=== PATIENT | male | born 1965 | race African-American/Black ===

== ENCOUNTER 2022-08-22 12:33 | Inpatient (IN) | payer OTHER ==
[2022-08-22 13:39] VITALS: BMI 26.6
[2022-08-22] MEDS ORDERED: ONDANSETRON *ODT* 4 MG TABLET SL PRN (16:13)
[2022-08-22] MEDS ORDERED: DICYCLOMINE HCL 10 MG CAPSULE PO PRN (16:13)
[2022-08-22] MEDS ORDERED: MAGNESIUM HYDROX 2400MG/30ML ORAL SUSPENSION 30 ML CUP PO PRN (16:13)
[2022-08-22] MEDS ORDERED: LOPERAMIDE HCL 2 MG CAPSULE PO PRN (16:13)
[2022-08-22] MEDS ORDERED: NALOXONE HCL (KLOXXADO) 8 MG SPRAY NS PRN (16:13)
[2022-08-22] MEDS ORDERED: NICOTINE 10 MG CARTRIDGE (INHALER) IH PRN (16:13)
[2022-08-22] MEDS ORDERED: BISMUTH SUBSALICYLATE 524 MG/30 ML PO PRN (16:13)
[2022-08-22] MEDS ORDERED: NICOTINE POLACRILEX 2 MG GUM BUC PRN (16:13)
[2022-08-22] MEDS ORDERED: IBUPROFEN 400 MG TABLET (FP) PO PRN (16:13)
[2022-08-22] MEDS ORDERED: IBUPROFEN 600 MG TABLET (FP) PO PRN (16:13)
[2022-08-22] MEDS ORDERED: MAG HYDROX/AL HYDROX/SIMETH 30 ML UNIT-DOSE CUP PO PRN (16:13)
[2022-08-22] MEDS ORDERED: ACETAMINOPHEN 325 MG TABLET (FP) PO PRN ×2 (16:13)
[2022-08-22] MEDS ORDERED: BENZOCAINE/MENTHOL (CHLORASEPTIC ) LOZENGE MM PRN (16:13)
[2022-08-22] MEDS ORDERED: MAGNESIUM CITRATE 300 ML BOTTLE PO PRN (16:13)
[2022-08-22] MEDS: PRENATAL VITAMINS W/ FOLIC ACID TABLET (FP) PO SCH (17:37)
[2022-08-22] MEDS: chlordiazePOXIDE HCL 25 MG CAPSULE PO SCH ×2 (17:40→22:53)
[2022-08-22] MEDS: METHOCARBAMOL 500 MG TABLET PO PRN (17:40)
[2022-08-22] MEDS: THIAMINE HCL 100 MG TABLET (FP) PO SCH (22:53)
[2022-08-22] MEDS: MELATONIN 5 MG TABLETS PO SCH (22:55)
[2022-08-23] MEDS: chlordiazePOXIDE HCL 25 MG CAPSULE PO SCH ×4 (06:20→22:51)
[2022-08-23] MEDS ORDERED: hydrOXYzine PAMOATE 25 MG CAPSULE (FP) PO PRN (09:03)
[2022-08-23 11:09] LABS: HEMATOCRIT 42.3 % (35.4-49); HEMOGLOBIN 14.2 GM/dL (11.7-16.9); MCH 30.4 pg (25.7-33.7); MCHC 33.5 g/dl (32.0-35.9); MEAN CELL VOLUME 90.6 fl (80-96); MEAN PLT VOLUME 8.4 fl (7.5-11.1); PLATELET COUNT 212 10^3/uL (134-434); RBC 4.67 M/mm3 (4.00-5.60); RDW 13.5 % (11.9-15.9); WHITE BLOOD COUNT 4.2 K/mm3 (4.0-10.0)
[2022-08-23 11:20] LABS: ALBUMIN 3.3 g/dl (3.4-5.0); CALCIUM 8.3 mg/dL (8.5-10.1)
[2022-08-23] MEDS: PRENATAL VITAMINS W/ FOLIC ACID TABLET (FP) PO SCH (11:20)
[2022-08-23 11:21] LABS: BLOOD UREA NITROGEN 12.1 mg/dL (7-18)
[2022-08-23 11:25] LABS: BILIRUBIN,TOTAL 0.4 mg/dL (0.2-1)
[2022-08-23] MEDS: MELATONIN 5 MG TABLETS PO SCH (22:50)
[2022-08-23] MEDS: THIAMINE HCL 100 MG TABLET (FP) PO SCH (22:52)
[2022-08-24] MEDS: chlordiazePOXIDE HCL 25 MG CAPSULE PO SCH ×4 (06:20→22:46)
[2022-08-24] MEDS: PRENATAL VITAMINS W/ FOLIC ACID TABLET (FP) PO SCH (10:31)
[2022-08-24] MEDS: THIAMINE HCL 100 MG TABLET (FP) PO SCH (22:26)
[2022-08-24] MEDS: MELATONIN 5 MG TABLETS PO SCH (22:26)
[2022-08-24] MEDS: CALCIUM CARBONATE 650 MG TABLET PO SCH (22:26)
[2022-08-25] MEDS: chlordiazePOXIDE HCL 10 MG CAPSULE PO SCH ×4 (06:15→22:22)
[2022-08-25] MEDS: PRENATAL VITAMINS W/ FOLIC ACID TABLET (FP) PO SCH (10:19)
[2022-08-25] MEDS: CALCIUM CARBONATE 650 MG TABLET PO SCH ×2 (10:19→22:21)
[2022-08-25] MEDS: THIAMINE HCL 100 MG TABLET (FP) PO SCH (22:21)
[2022-08-25] MEDS: MELATONIN 5 MG TABLETS PO SCH (22:21)
[2022-08-26] MEDS: chlordiazePOXIDE HCL 10 MG CAPSULE PO SCH ×2 (06:48→17:38)
[2022-08-26] MEDS: PRENATAL VITAMINS W/ FOLIC ACID TABLET (FP) PO SCH (10:58)
[2022-08-26] MEDS: CALCIUM CARBONATE 650 MG TABLET PO SCH ×2 (10:58→22:36)
[2022-08-26 21:04] VITALS: RESP 18
[2022-08-26] MEDS: MELATONIN 5 MG TABLETS PO SCH (22:36)
[2022-08-26] MEDS: THIAMINE HCL 100 MG TABLET (FP) PO SCH (22:36)
[2022-08-27] MEDS: METHOCARBAMOL 500 MG TABLET PO PRN (00:37)
[2022-08-27] MEDS ORDERED: chlordiazePOXIDE HCL 10 MG CAPSULE PO ONE (05:00)
[2022-08-27 09:08] VITALS: BP 104/71; PULSE 86; TEMP 98.2
== END 2022-08-27 11:34 | disposition home or self-care (01) | DRG 774 ==
LOC: YASAS 12:33 → Y3N 16:35 → UNDODISIN 08-27 10:10
PROVIDERS: ADMIT Allergy & Immunology; ATTEND Surgery
PROC: HZ2ZZZZ Detoxification Services for Substance Abuse Treatment (ICD-10-PCS; principal; 2022-08-22)
DX: F10.230 Alcohol dependence with withdrawal, uncomplicated (principal); F14.20 Cocaine dependence, uncomplicated; F17.210 Nicotine dependence, cigarettes, uncomplicated; F19.280 Other psychoactive substance dependence with psychoactive substance-induced anxiety disorder; F19.24 Other psychoactive substance dependence with psychoactive substance-induced mood disorder; E46 Unspecified protein-calorie malnutrition; E83.51 Hypocalcemia; E87.8 Other disorders of electrolyte and fluid balance, not elsewhere classified; Z68.27 Body mass index [BMI] 27.0-27.9, adult; Z28.310 Unvaccinated for COVID-19; Z28.21 Immunization not carried out because of patient refusal
CPT/HCPCS: 36415; 80053; 85027; 86780; 87811; C9803-CS; U0003; U0005

== ENCOUNTER 2023-04-05 10:02 | Inpatient (IN) | payer OTHER ==
[2023-04-05 10:29] VITALS: BMI 27.7
[2023-04-05] MEDS ORDERED: BENZOCAINE/MENTHOL (CHLORASEPTIC ) LOZENGE MM PRN (11:23)
[2023-04-05] MEDS ORDERED: METHOCARBAMOL 500 MG TABLET PO PRN (11:23)
[2023-04-05] MEDS ORDERED: POLYETHYLENE GLYCOL (HEALTHYLAX) 3350 17 GM PACKET PO PRN (11:23)
[2023-04-05] MEDS ORDERED: guaiFENesin 600 MG TABLET.ER (FP) PO PRN (11:23)
[2023-04-05] MEDS ORDERED: NALOXONE HCL (KLOXXADO) 8 MG SPRAY NS PRN (11:23)
[2023-04-05] MEDS ORDERED: BISMUTH SUBSALICYLATE 524 MG/30 ML PO PRN (11:23)
[2023-04-05] MEDS ORDERED: ONDANSETRON *ODT* 4 MG TABLET SL PRN (11:23)
[2023-04-05] MEDS ORDERED: hydrOXYzine PAMOATE 25 MG CAPSULE (FP) PO PRN (11:23)
[2023-04-05] MEDS ORDERED: IBUPROFEN 400 MG TABLET (FP) PO PRN (11:23)
[2023-04-05] MEDS ORDERED: ACETAMINOPHEN 325 MG TABLET (FP) PO PRN (11:23)
[2023-04-05] MEDS ORDERED: MAG HYDROX/AL HYDROX/SIMETH 30 ML UNIT-DOSE CUP PO PRN (11:23)
[2023-04-05] MEDS ORDERED: chlordiazePOXIDE HCL 25 MG CAPSULE PO PRN (11:23)
[2023-04-05] MEDS ORDERED: MAGNESIUM HYDROX 2400MG/30ML ORAL SUSPENSION 30 ML CUP PO PRN (11:23)
[2023-04-05] MEDS ORDERED: IBUPROFEN 600 MG TABLET (FP) PO PRN (11:23)
[2023-04-05] MEDS ORDERED: DICYCLOMINE HCL 10 MG CAPSULE PO PRN (11:23)
[2023-04-05] MEDS ORDERED: LOPERAMIDE HCL 2 MG CAPSULE PO PRN (11:23)
[2023-04-05] MEDS ORDERED: BENZONATATE 200 MG CAPSULE PO PRN (11:23)
[2023-04-05] MEDS ORDERED: NALOXONE HCL 0.4 MG/ML VIAL IM PRN (11:23)
[2023-04-05] MEDS ORDERED: NICOTINE 10 MG CARTRIDGE (INHALER) IH PRN (11:23)
[2023-04-05] MEDS: chlordiazePOXIDE HCL 25 MG CAPSULE PO SCH ×2 (17:32→22:53)
[2023-04-05] MEDS: THIAMINE HCL 100 MG TABLET (FP) PO SCH (22:52)
[2023-04-05] MEDS: MELATONIN 5 MG TABLETS PO SCH (22:52)
[2023-04-06] MEDS: chlordiazePOXIDE HCL 25 MG CAPSULE PO SCH ×4 (05:47→22:30)
[2023-04-06] MEDS: PRENATAL VITAMINS W/ FOLIC ACID TABLET (FP) PO SCH (10:34)
[2023-04-06 10:50] LABS: HEMATOCRIT 41.2 % (35.4-49); HEMOGLOBIN 14.2 GM/dL (11.7-16.9); MCH 30.5 pg (25.7-33.7); MCHC 34.5 g/dl (32.0-35.9); MEAN CELL VOLUME 88.6 fl (80-96); MEAN PLT VOLUME 8.7 fl (7.5-11.1); PLATELET COUNT 181 10^3/uL (134-434); RBC 4.65 M/mm3 (4.00-5.60); RDW 13.3 % (11.9-15.9)
[2023-04-06 11:11] LABS: POTASSIUM 4.1 mmol/L (3.5-5.1)
[2023-04-06 11:14] LABS: ALBUMIN 3.5 g/dl (3.4-5.0); BLOOD UREA NITROGEN 14.9 mg/dL (7-18); CALCIUM 8.6 mg/dL (8.5-10.1)
[2023-04-06 11:17] LABS: CREATININE 1.1 mg/dL (0.55-1.3)
[2023-04-06 11:18] LABS: TOT PROT 6.3 g/dl (6.4-8.2)
[2023-04-06 11:19] LABS: BILIRUBIN,TOTAL 0.5 mg/dL (0.2-1)
[2023-04-06 11:21] LABS: CHOLESTEROL 197 mg/dL (50-200)
[2023-04-06 11:22] LABS: LDL CHOLESTEROL (ONLY SJRH) 121 mg/dL (5-100)
[2023-04-06 11:25] LABS: HDL CHOLESTEROL 57 mg/dL (40-60)
[2023-04-06] MEDS: MELATONIN 5 MG TABLETS PO SCH (22:30)
[2023-04-06] MEDS: THIAMINE HCL 100 MG TABLET (FP) PO SCH (22:30)
[2023-04-07] MEDS: chlordiazePOXIDE HCL 25 MG CAPSULE PO SCH ×4 (05:20→22:16)
[2023-04-07] MEDS: PRENATAL VITAMINS W/ FOLIC ACID TABLET (FP) PO SCH (10:18)
[2023-04-07] MEDS: MELATONIN 5 MG TABLETS PO SCH (22:15)
[2023-04-07] MEDS: THIAMINE HCL 100 MG TABLET (FP) PO SCH (22:15)
[2023-04-08] MEDS ORDERED: chlordiazePOXIDE HCL 10 MG CAPSULE PO PRN
[2023-04-08] MEDS: chlordiazePOXIDE HCL 10 MG CAPSULE PO SCH ×2 (05:48→10:07)
[2023-04-08 09:32] VITALS: BP 113/78; PULSE 72; RESP 20; TEMP 97.7
[2023-04-08] MEDS: PRENATAL VITAMINS W/ FOLIC ACID TABLET (FP) PO SCH (10:07)
[2023-04-09] MEDS ORDERED: chlordiazePOXIDE HCL 10 MG CAPSULE PO SCH (05:00)
[2023-04-10] MEDS ORDERED: chlordiazePOXIDE HCL 10 MG CAPSULE PO ONE (05:00)
== END 2023-04-08 12:48 | disposition home or self-care (01) | DRG 774 ==
LOC: YASAS 10:02 → Y3N 11:37
PROVIDERS: ADMIT Allergy & Immunology; ATTEND Surgery
PROC: HZ2ZZZZ Detoxification Services for Substance Abuse Treatment (ICD-10-PCS; principal; 2023-04-05)
DX: F10.230 Alcohol dependence with withdrawal, uncomplicated (principal); F14.20 Cocaine dependence, uncomplicated; F19.280 Other psychoactive substance dependence with psychoactive substance-induced anxiety disorder; F19.24 Other psychoactive substance dependence with psychoactive substance-induced mood disorder; E78.5 Hyperlipidemia, unspecified; Z28.311 Partially vaccinated for COVID-19; Z28.9 Immunization not carried out for unspecified reason
CPT/HCPCS: 36415; 80053; 80061; 85027; 86780; 87635; 87811

== ENCOUNTER 2024-11-01 10:35 | Inpatient (IN) | payer OTHER ==
[2024-11-01 10:55] VITALS: BMI 26.6
[2024-11-01] MEDS ORDERED: diazePAM 5 MG TABLET PO PRN (11:23)
[2024-11-01] MEDS ORDERED: BENZOCAINE/MENTHOL (CHLORASEPTIC ) LOZENGE MM PRN (11:31)
[2024-11-01] MEDS ORDERED: guaiFENesin 600 MG TABLET.ER (FP) PO PRN (11:31)
[2024-11-01] MEDS ORDERED: P-EPHED 60MG/TRIPROLIDI 2.5MG TABLET PO PRN (11:31)
[2024-11-01] MEDS ORDERED: BISMUTH SUBSALICYLATE 262 MG/15 ML BTL PO PRN (11:31)
[2024-11-01] MEDS ORDERED: NALOXONE (NARCAN) HCL 4 MG/0.1 ML SPRAY NS PRN (11:31)
[2024-11-01] MEDS ORDERED: MAGNESIUM HYDROX 2400MG/30ML ORAL SUSPENSION 30 ML CUP PO PRN (11:31)
[2024-11-01] MEDS ORDERED: BENZONATATE 200 MG CAPSULE PO PRN (11:31)
[2024-11-01] MEDS ORDERED: IBUPROFEN 400 MG TABLET (FP) PO PRN (11:31)
[2024-11-01] MEDS ORDERED: POLYETHYLENE GLYCOL (HEALTHYLAX) 3350 17 GM PACKET PO PRN (11:31)
[2024-11-01] MEDS ORDERED: NICOTINE POLACRILEX 2 MG GUM BUC PRN (11:31)
[2024-11-01] MEDS ORDERED: DICYCLOMINE HCL 10 MG CAPSULE PO PRN (11:31)
[2024-11-01] MEDS ORDERED: IBUPROFEN 600 MG TABLET (FP) PO PRN (11:31)
[2024-11-01] MEDS ORDERED: NICOTINE POLACRILEX 2 MG LOZENGE BC PRN (11:31)
[2024-11-01] MEDS ORDERED: LOPERAMIDE HCL 2 MG CAPSULE PO PRN (11:31)
[2024-11-01] MEDS ORDERED: ONDANSETRON *ODT* 4 MG TABLET SL PRN (11:31)
[2024-11-01] MEDS ORDERED: MAG HYDROX/AL HYDROX/SIMETH 30 ML UNIT-DOSE CUP PO PRN (11:31)
[2024-11-01] MEDS ORDERED: diazePAM 5 MG TABLET ONE (11:56)
[2024-11-01] MEDS: diazePAM 5 MG TABLET PO SCH (11:58)
[2024-11-01] MEDS: THIAMINE 100 MG TABLET PO SCH (22:05)
[2024-11-01] MEDS: MELATONIN 5 MG TABLETS PO SCH (22:08)
[2024-11-02] MEDS: PRENATAL VITAMINS W/ FOLIC ACID TABLET (FP) PO SCH (10:08)
[2024-11-02] MEDS: chlordiazePOXIDE HCL 25 MG CAPSULE PO SCH (10:08)
[2024-11-02] MEDS: hydrOXYzine PAMOATE 25 MG CAPSULE (FP) PO PRN (10:08)
[2024-11-02] MEDS: METHOCARBAMOL 500 MG TABLET PO PRN (10:08)
[2024-11-02 15:06] LABS: HEMATOCRIT 43.6 % (35.4-49); HEMOGLOBIN 14.5 GM/dL (11.7-16.9); MCH 30.4 pg (25.7-33.7); MCHC 33.2 g/dl (32.0-35.9); MEAN CELL VOLUME 91.7 fl (80-96); MEAN PLT VOLUME 8.6 fl (7.5-11.1); PLATELET COUNT 188 10^3/uL (134-434); RBC 4.75 M/mm3 (4.00-5.60); RDW 13.3 % (11.9-15.9); WHITE BLOOD COUNT 3.5 K/mm3 (4.0-10.0)
[2024-11-02 15:22] LABS: CHLORIDE 110 mmol/L (98-107); POTASSIUM 3.8 mmol/L (3.5-5.1); SODIUM 140 mmol/L (136-145)
[2024-11-02 15:44] LABS: ALBUMIN 3.8 g/dl (3.4-5.0); ANION GAP 6 mmol/L (4-13); BLOOD UREA NITROGEN 9.6 mg/dL (7-18); CO2 24 mmol/L (21-32); GLUCOSE,RANDOM 109 mg/dL (74-106)
[2024-11-02 15:46] LABS: CREATININE 1.1 mg/dL (0.55-1.3); SGPT/ALT 36 U/L (13-61)
[2024-11-02 15:47] LABS: SGOT/AST 24 U/L (15-37)
[2024-11-02 15:48] LABS: BILIRUBIN,TOTAL 0.6 mg/dL (0.2-1); TOT PROT 6.4 g/dl (6.4-8.2)
[2024-11-02 15:49] LABS: ALK PHOS 86 U/L (45-117)
[2024-11-03] MEDS ORDERED: diazePAM 5 MG TABLET PO SCH (06:00)
[2024-11-04] MEDS: chlordiazePOXIDE HCL 25 MG CAPSULE PO SCH (05:56)
[2024-11-04] MEDS ORDERED: diazePAM 5 MG TABLET PO SCH (06:00)
[2024-11-04] MEDS ORDERED: TRIMETHOBENZAMIDE HCL 200MG/2ML INJ IM PRN (11:58)
[2024-11-04] MEDS: ACETAMINOPHEN 325 MG TABLET (FP) PO PRN (12:03)
[2024-11-04] MEDS: chlordiazePOXIDE HCL 25 MG CAPSULE PO PRN (22:24)
[2024-11-05] MEDS ORDERED: chlordiazePOXIDE HCL 10 MG CAPSULE PO PRN
[2024-11-05] MEDS: chlordiazePOXIDE HCL 10 MG CAPSULE PO SCH (05:55)
[2024-11-05] MEDS ORDERED: diazePAM 5 MG TABLET PO ONE (06:00)
[2024-11-06] MEDS: chlordiazePOXIDE HCL 10 MG CAPSULE PO SCH (05:56)
[2024-11-06] MEDS: NALOXONE (NYS OPIOID OVERDOSE PROGRAM) 4 MG/0.1 ML SPRAY NS SCH (08:49)
[2024-11-06 09:07] VITALS: BP 139/94; PULSE 110; RESP 16; TEMP 97.7
[2024-11-07] MEDS ORDERED: chlordiazePOXIDE HCL 10 MG CAPSULE PO ONE (05:00)
== END 2024-11-06 09:50 | disposition other institution (70) | DRG 774 ==
LOC: YASAS 10:35 → Y6N 11:54
PROVIDERS: ADMIT Allergy & Immunology; ATTEND Allergy & Immunology
PROC: HZ2ZZZZ Detoxification Services for Substance Abuse Treatment (ICD-10-PCS; principal; 2024-11-01)
DX: F10.230 Alcohol dependence with withdrawal, uncomplicated (principal); F14.20 Cocaine dependence, uncomplicated; F17.210 Nicotine dependence, cigarettes, uncomplicated; F10.282 Alcohol dependence with alcohol-induced sleep disorder; F10.280 Alcohol dependence with alcohol-induced anxiety disorder; F10.24 Alcohol dependence with alcohol-induced mood disorder; F32.A Depression, unspecified; F43.10 Post-traumatic stress disorder, unspecified; M54.50 Low back pain, unspecified; G89.29 Other chronic pain
CPT/HCPCS: 36415; 80053; 80307; 85027; 86780; 93005; 93010

== ENCOUNTER 2025-01-11 18:28 | Inpatient (IN) | payer OTHER ==
[2025-01-11 19:00] VITALS: BMI 25.8
[2025-01-11] MEDS ORDERED: guaiFENesin 600 MG TABLET.ER (FP) PO PRN (20:22)
[2025-01-11] MEDS ORDERED: MAGNESIUM HYDROX 2400MG/30ML ORAL SUSPENSION 30 ML CUP PO PRN (20:22)
[2025-01-11] MEDS ORDERED: BISMUTH SUBSALICYLATE 524 MG/30 ML PO PRN (20:22)
[2025-01-11] MEDS ORDERED: BENZONATATE 200 MG CAPSULE PO PRN (20:22)
[2025-01-11] MEDS ORDERED: IBUPROFEN 600 MG TABLET (FP) PO PRN (20:22)
[2025-01-11] MEDS ORDERED: NALOXONE (NARCAN) HCL 4 MG/0.1 ML SPRAY NS PRN (20:22)
[2025-01-11] MEDS ORDERED: IBUPROFEN 400 MG TABLET (FP) PO PRN (20:22)
[2025-01-11] MEDS ORDERED: LOPERAMIDE HCL 2 MG CAPSULE PO PRN (20:22)
[2025-01-11] MEDS ORDERED: DICYCLOMINE HCL 10 MG CAPSULE PO PRN (20:22)
[2025-01-11] MEDS ORDERED: MAG HYDROX/AL HYDROX/SIMETH 30 ML UNIT-DOSE CUP PO PRN (20:22)
[2025-01-11] MEDS ORDERED: BENZOCAINE/MENTHOL (CHLORASEPTIC ) LOZENGE MM PRN (20:22)
[2025-01-11] MEDS ORDERED: POLYETHYLENE GLYCOL (HEALTHYLAX) 3350 17 GM PACKET PO PRN (20:22)
[2025-01-11] MEDS ORDERED: hydrOXYzine PAMOATE 25 MG CAPSULE (FP) PO PRN (20:22)
[2025-01-11] MEDS ORDERED: ONDANSETRON *ODT* 4 MG TABLET SL PRN (20:22)
[2025-01-11] MEDS ORDERED: chlordiazePOXIDE HCL 25 MG CAPSULE PO PRN (20:25)
[2025-01-11] MEDS ORDERED: chlordiazePOXIDE HCL 25 MG CAPSULE ONE (21:36)
[2025-01-11] MEDS ORDERED: MELATONIN 5 MG TABLETS ONE (21:36)
[2025-01-11] MEDS: THIAMINE 100 MG TABLET PO SCH (21:40)
[2025-01-11] MEDS: MELATONIN 5 MG TABLETS PO SCH (21:40)
[2025-01-11] MEDS: chlordiazePOXIDE HCL 25 MG CAPSULE PO SCH (22:04)
[2025-01-12] MEDS: NICOTINE 14 MG/24 HOURS TOPICAL PATCH TD SCH (10:33)
[2025-01-12] MEDS: PRENATAL VITAMINS W/ FOLIC ACID TABLET (FP) PO SCH (10:33)
[2025-01-12 11:26] LABS: HEMATOCRIT 41.1 % (40.1-51.0); MCHC 34.1 g/dl (32.3-36.5); MEAN CELL VOLUME 88.6 fl (79.0-92.2); MEAN PLT VOLUME 10.2 fl (9.4-12.4); PLATELET COUNT 188 x10^3/uL (163-337)
[2025-01-12 11:31] LABS: CHLORIDE 107 mmol/L (98-107); POTASSIUM 3.8 mmol/L (3.5-5.1); SODIUM 139 mmol/L (136-145)
[2025-01-12 11:41] LABS: CALCIUM 8.5 mg/dL (8.5-10.1)
[2025-01-12 11:42] LABS: ALBUMIN 3.4 g/dl (3.4-5.0); ANION GAP 7 mmol/L (4-13); CO2 25 mmol/L (21-32); GLUCOSE,RANDOM 138 mg/dL (74-106)
[2025-01-12 11:45] LABS: CREATININE 1.1 mg/dL (0.55-1.3); SGOT/AST 17 U/L (15-37); SGPT/ALT 31 U/L (13-61)
[2025-01-12 11:46] LABS: BILIRUBIN,TOTAL 0.8 mg/dL (0.2-1)
[2025-01-12 11:48] LABS: ALK PHOS 84 U/L (45-117)
[2025-01-12] MEDS: GABAPENTIN 300 MG CAPSULE PO SCH (13:37)
[2025-01-13] MEDS: chlordiazePOXIDE HCL 25 MG CAPSULE PO SCH (05:55)
[2025-01-13] MEDS: ALBUTEROL SO4 HFA INHALER IH PRN (10:31)
[2025-01-14] MEDS ORDERED: chlordiazePOXIDE HCL 10 MG CAPSULE PO PRN
[2025-01-14] MEDS: chlordiazePOXIDE HCL 10 MG CAPSULE PO SCH (05:55)
[2025-01-14] MEDS: METHOCARBAMOL 500 MG TABLET PO PRN (10:29)
[2025-01-14] MEDS: NICOTINE POLACRILEX 2 MG GUM BUC PRN (10:32)
[2025-01-15] MEDS: ACETAMINOPHEN 325 MG TABLET (FP) PO PRN (01:20)
[2025-01-15] MEDS: chlordiazePOXIDE HCL 10 MG CAPSULE PO SCH (06:13)
[2025-01-15] MEDS: NALTREXONE HCL 50 MG TABLET PO ONE (15:43)
[2025-01-15] MEDS: ALBUTEROL SO4 0.083% IH SOL 2.5 MG/3 ML VIAL.NEB. NEB PRN (22:32)
[2025-01-16] MEDS: chlordiazePOXIDE HCL 10 MG CAPSULE PO ONE (05:39)
[2025-01-16] MEDS: NALTREXONE HCL 50 MG TABLET PO SCH (09:31)
[2025-01-17 09:03] VITALS: BP 126/75; PULSE 78; RESP 18; TEMP 98.8
== END 2025-01-17 09:05 | disposition other institution (70) | DRG 774 ==
LOC: YASAS 18:28 → Y6N 21:03
PROVIDERS: ADMIT Allergy & Immunology; ATTEND Allergy & Immunology
PROC: HZ2ZZZZ Detoxification Services for Substance Abuse Treatment (ICD-10-PCS; principal; 2025-01-11)
DX: F10.230 Alcohol dependence with withdrawal, uncomplicated (principal); F14.20 Cocaine dependence, uncomplicated; F17.210 Nicotine dependence, cigarettes, uncomplicated; F19.282 Other psychoactive substance dependence with psychoactive substance-induced sleep disorder; F19.280 Other psychoactive substance dependence with psychoactive substance-induced anxiety disorder; D86.9 Sarcoidosis, unspecified; M79.2 Neuralgia and neuritis, unspecified; R07.89 Other chest pain
CPT/HCPCS: 36415; 80053; 80305; 80307; 85027; 86780; 93005; 93010; 94640